=== PATIENT | male | born 1945 | race Caucasian/White ===

== ENCOUNTER 2020-07-10 12:34 | Emergency (ER) | payer MEDICARE ==
[2020-07-10] MEDS ORDERED: Albuterol Sulfate 2.5 mg/3 ml Neb ONE (13:26)
[2020-07-10] MEDS ORDERED: Magnesium 2 GM/50 ML BAG (IN WATER) ONE (13:31)
[2020-07-10] MEDS ORDERED: Furosemide 40 MG/4 ML VIAL ONE (13:31)
[2020-07-10 14:06] LABS: #Basophils 0.1 10x3/uL (0.0-0.2); #Eosinphils 0.7 10x3/uL (0.0-0.5); #Monocytes 0.9 10x3/uL (0.0-1.1); #Neutrophils 6.5 10x3/uL (1.5-8.4); %Basophils 1.3 % (0.0-2.0); %Lymphocytes 17.4 % (18.0-47.0); %Monocytes 8.6 % (0.0-10.0); %Neutrophils 65.2 % (40.0-75.0); Hemoglobin 14.2 g/dL (13.5-17.5); Mean Corpuscular Hemoglobin 28.1 pg (27.0-33.0); Mean Corpuscular Volume 85.1 fl (81.2-95.1); Mean Platelet Volume 9.5 fl (7.4-10.4); Platelet Count 285 10x3/uL (150-450); RBC Distribution Width 13.8 % (11.5-14.5); Red Blood Cell (RBC) Count 5.05 10x6/uL (4.32-5.72); White Blood Cell (WBC) Count 9.9 10x3/uL (3.5-10.5)
[2020-07-10 14:15] LABS: PTT 23.1 sec (22.0-33.0); Prothrombin Time 11.4 sec (9.5-12.1)
[2020-07-10 14:18] LABS: ALT (SGPT) 27 U/L (8-55); AST (SGOT) 25 U/L (5-34); Albumin 4.1 g/dL (3.4-4.8); Alkaline Phosphatase 93 U/L (40-110); Anion Gap 13 mmol/L (10-20); BUN (Urea Nitrogen) 21 mg/dL (8.4-25.7); Bilirubin, Total 0.5 mg/dL (0.2-1.2); Calc. Creatinine Clearance 0 mL/min (70-130); Calcium 9.4 mg/dL (7.8-10.44); Carbon Dioxide 29 mmol/L (23-31); Chloride 100 mmol/L (98-107); Globulin 3.2 g/dL (2.4-3.5); Glucose 150 mg/dL (83-110); Magnesium 1.9 mg/dL (1.6-2.6); Potassium 4.1 mmol/L (3.5-5.1); Protein, Total 7.3 g/dL (5.8-8.1); Sodium 138 mmol/L (136-145)
[2020-07-10 15:12] LABS: Bilirubin Neg (Negative); Blood, Urine 250 (Negative); Clarity Slightly Cloudy (Clear); Glucose, Urine (Dipstick) 250 mg/dL (Negative); Ketone, Urine Negative (Negative); Leukocyte Negative (Negative); Nitrite Negative (Negative); Protein, Urine (Dipstick) Negative (Neg-Trace); Urobilinogen Normal mg/dL (Less than 2); pH, Urine 6.5 (5.0-9.0)
[2020-07-10 15:43] LABS: RBC/HPF Greater than 50 HPF (0-3); Squamous Epithelial 0-3 HPF (0-3); WBC/HPF 0-3 HPF (0-3)
[2020-07-10 15:44] LABS: Bacteria/HPF Rare-Few HPF (None Seen)
== END 2020-07-10 15:44 | disposition home or self-care (01) ==
LOC: CSHERS 12:34
DX: J44.1 Chronic obstructive pulmonary disease with (acute) exacerbation (principal); J18.9 Pneumonia, unspecified organism; E78.5 Hyperlipidemia, unspecified; I10 Essential (primary) hypertension; G62.9 Polyneuropathy, unspecified; G30.9 Alzheimer's disease, unspecified; F02.80 Dementia in other diseases classified elsewhere, unspecified severity, without behavioral disturbance, psychotic disturbance, mood disturbance, and anxiety; Z87.891 Personal history of nicotine dependence; Z79.899 Other long term (current) drug therapy
CPT/HCPCS: 36415; 71045; 71275; 80053; 81003; 81015; 83735; 83880; 84484; 85025; 85610; 85730; 93005; 94760; 96365; 96375; J1940; J3475; J7611; J7620

== ENCOUNTER 2020-10-17 13:44 | Observation (INO) | payer MEDICARE ==
[2020-10-17] MEDS ORDERED: Aspirin 325 MG TAB ONE (14:20)
[2020-10-17 14:31] LABS: #Basophils 0.1 10x3/uL (0.0-0.2); #Eosinphils 0.5 10x3/uL (0.0-0.5); #Monocytes 0.7 10x3/uL (0.0-1.1); #Neutrophils 7.5 10x3/uL (1.5-8.4); %Eosinophils 5.2 % (0.0-6.0); %Lymphocytes 13.4 % (18.0-47.0); %Monocytes 6.6 % (0.0-10.0); %Neutrophils 73.3 % (40.0-75.0); Hemoglobin 13.4 g/dL (13.5-17.5); Mean Corpuscular HGB CONC 32.8 g/dL (32.0-36.0); Mean Corpuscular Hemoglobin 28.8 pg (27.0-33.0); Mean Corpuscular Volume 87.8 fl (81.2-95.1); Mean Platelet Volume 9.4 fl (7.4-10.4); Platelet Count 245 10x3/uL (150-450); Red Blood Cell (RBC) Count 4.66 10x6/uL (4.32-5.72); White Blood Cell (WBC) Count 10.3 10x3/uL (3.5-10.5)
[2020-10-17 14:44] LABS: ALT (SGPT) 24 U/L (8-55); AST (SGOT) 21 U/L (5-34); Alkaline Phosphatase 99 U/L (40-110); Anion Gap 13 mmol/L (10-20); BUN (Urea Nitrogen) 24 mg/dL (8.4-25.7); Bilirubin, Total 0.7 mg/dL (0.2-1.2); Calc. Creatinine Clearance 0 mL/min (70-130); Calcium 9.6 mg/dL (7.8-10.44); Carbon Dioxide 26 mmol/L (23-31); Chloride 107 mmol/L (98-107); Globulin 2.8 g/dL (2.4-3.5); Glucose 115 mg/dL (83-110); Potassium 4.1 mmol/L (3.5-5.1); Protein, Total 6.8 g/dL (5.8-8.1); Sodium 142 mmol/L (136-145)
[2020-10-17] MEDS ORDERED: Albuterol Sulfate 2.5 mg/0.5 ml Neb ONE (14:56)
[2020-10-17 17:17] LABS: Magnesium 2.1 mg/dL (1.6-2.6)
[2020-10-17] MEDS ORDERED: ALBUTEROL SULFATE 90 MCG IH PRN (21:13)
[2020-10-17] MEDS ORDERED: Nitroglycerin 0.4 MG TAB (25 Tab Bottle) SL PRN (21:20)
[2020-10-17 22:22] LABS: Troponin I Less than 0.010 ng/mL (< 0.028)
[2020-10-17 22:31] LABS: SARS-CoV-2 NAA Rapid Test Not Detected (NotDetected)
[2020-10-18 00:46] VITALS: BMI 35.9
[2020-10-18 00:55] LABS: Troponin I Less than 0.010 ng/mL (< 0.028)
[2020-10-18] MEDS ORDERED: Furosemide 20 MG/2 ML VIAL SLOW IVP SCH ×2 (02:45→08:45)
[2020-10-18 04:10] LABS: #Basophils 0.1 10x3/uL (0.0-0.2); #Eosinphils 0.7 10x3/uL (0.0-0.5); #Monocytes 0.8 10x3/uL (0.0-1.1); #Neutrophils 8.2 10x3/uL (1.5-8.4); %Basophils 1.1 % (0.0-2.0); %Eosinophils 6.4 % (0.0-6.0); %Lymphocytes 12.7 % (18.0-47.0); %Monocytes 7.2 % (0.0-10.0); %Neutrophils 72.2 % (40.0-75.0); Hemoglobin 13.4 g/dL (13.5-17.5); Mean Corpuscular HGB CONC 32.3 g/dL (32.0-36.0); Mean Corpuscular Hemoglobin 28.5 pg (27.0-33.0); Mean Corpuscular Volume 88.1 fl (81.2-95.1); Mean Platelet Volume 9.9 fl (7.4-10.4); Platelet Count 255 10x3/uL (150-450); RBC Distribution Width 15.1 % (11.5-14.5); Red Blood Cell (RBC) Count 4.71 10x6/uL (4.32-5.72); White Blood Cell (WBC) Count 11.4 10x3/uL (3.5-10.5)
[2020-10-18 04:19] LABS: ALT (SGPT) 22 U/L (8-55); AST (SGOT) 19 U/L (5-34); Albumin 3.8 g/dL (3.4-4.8); Alkaline Phosphatase 101 U/L (40-110); Anion Gap 12 mmol/L (10-20); BUN (Urea Nitrogen) 20 mg/dL (8.4-25.7); Bilirubin, Total 0.5 mg/dL (0.2-1.2); Calc. Creatinine Clearance 91 mL/min (70-130); Calcium 9.4 mg/dL (7.8-10.44); Carbon Dioxide 27 mmol/L (23-31); Cardiac Risk 4.4 (Less than 4.5); Chloride 106 mmol/L (98-107); Cholesterol 148 mg/dl (< 200 Desired); Globulin 3.2 g/dL (2.4-3.5); Glucose 141 mg/dL (83-110); HDL Cholesterol 34 mg/dL (>60 Neg Risk); LDL Cholesterol, Calculated 90 mg/dL; Magnesium 2.1 mg/dL (1.6-2.6); Potassium 4.1 mmol/L (3.5-5.1); Sodium 141 mmol/L (136-145); Triglycerides 122 mg/dL (Less than 150)
[2020-10-18] MEDS ORDERED: Levothyroxine Sodium 75 MCG TAB PO SCH (06:00)
[2020-10-18] MEDS ORDERED: Furosemide 40 MG/4 ML VIAL ONE (08:37)
[2020-10-18] MEDS ORDERED: Enoxaparin Sodium 40 MG/0.4 ML SYRINGE SC SCH (09:00)
[2020-10-18] MEDS ORDERED: Pregabalin 75 MG CAP PO SCH (09:00)
[2020-10-18] MEDS ORDERED: Aspirin Chewable 81 MG TAB PO SCH (09:00)
[2020-10-18] MEDS ORDERED: Primidone 50 MG TAB PO SCH (09:00)
[2020-10-18] MEDS ORDERED: Lisinopril 10 MG TAB PO SCH (09:00)
[2020-10-18] MEDS ORDERED: Amiodarone 200 MG TAB PO SCH (09:00)
[2020-10-18] MEDS ORDERED: Ascorbic Acid 500 mg Chewable Tablet PO SCH (09:00)
[2020-10-18] MEDS ORDERED: FLUoxetine HCl 20 MG CAP PO SCH (09:00)
[2020-10-18] MEDS ORDERED: Diltiazem HCl SR 90 mg Capsule PO SCH (09:00)
[2020-10-18 11:27] LABS: Hemoglobin A1c 7.4 % (4.0-6.0)
[2020-10-18 11:42] VITALS: BP 103/66; TEMP 97.9
[2020-10-18] MEDS ORDERED: Atorvastatin Calcium 20 MG TAB PO SCH (21:00)
[2020-10-18] MEDS ORDERED: Tamsulosin HCl 0.4 MG CAP PO SCH (21:00)
[2020-10-18] MEDS ORDERED: rOPINIRole HCl 1 MG TAB PO SCH (21:00)
[2020-10-18] MEDS ORDERED: Prazosin HCl 1 MG CAP PO SCH (21:00)
[2020-10-18] MEDS ORDERED: Mirtazapine 15 MG TAB PO SCH (21:00)
[2020-10-18] MEDS ORDERED: SODIUM FLUORIDE DT SCH (21:00)
== END 2020-10-18 15:26 | disposition home or self-care (01) ==
LOC: CSHERS 13:44 → CSHTELE 10-18 00:31
PROVIDERS: ADMIT Internal Medicine; ATTEND Physician Assistant Medical
DX: R07.9 Chest pain, unspecified (principal); J44.9 Chronic obstructive pulmonary disease, unspecified; I48.0 Paroxysmal atrial fibrillation; E03.9 Hypothyroidism, unspecified; E11.9 Type 2 diabetes mellitus without complications; I10 Essential (primary) hypertension; E78.5 Hyperlipidemia, unspecified; Z79.899 Other long term (current) drug therapy; Z79.82 Long term (current) use of aspirin; Z95.1 Presence of aortocoronary bypass graft; Z20.822 Contact with and (suspected) exposure to COVID-19
CPT/HCPCS: 0439T; 71045; 80053; 80061; 83036; 83605; 83735 ×2; 84484 ×3; 85025; 93005; 93306; 96372; 96374; 96376; G0378 ×2; U0002; 36415; 84443; J1650; J1940; J7611; J7620

== ENCOUNTER 2021-03-21 08:09 | Emergency (ER) | payer MEDICARE ==
[2021-03-21 08:49] LABS: #Basophils 0.1 10x3/uL (0.0-0.2); #Eosinphils 0.4 10x3/uL (0.0-0.5); #Monocytes 0.7 10x3/uL (0.0-1.1); #Neutrophils 6.9 10x3/uL (1.5-8.4); %Basophils 1.3 % (0.0-2.0); %Eosinophils 4.1 % (0.0-6.0); %Lymphocytes 15.8 % (18.0-47.0); %Monocytes 7.1 % (0.0-10.0); %Neutrophils 71.2 % (40.0-75.0); Hemoglobin 13.9 g/dL (13.5-17.5); Mean Corpuscular HGB CONC 32.4 g/dL (32.0-36.0); Mean Corpuscular Hemoglobin 28.8 pg (27.0-33.0); Mean Platelet Volume 9.2 fl (7.4-10.4); Platelet Count 258 10x3/uL (150-450); RBC Distribution Width 14.6 % (11.5-14.5); Red Blood Cell (RBC) Count 4.82 10x6/uL (4.32-5.72); White Blood Cell (WBC) Count 9.6 10x3/uL (3.5-10.5)
[2021-03-21 09:17] LABS: ALT (SGPT) 31 U/L (8-55); AST (SGOT) 25 U/L (5-34); Albumin 3.9 g/dL (3.4-4.8); Alkaline Phosphatase 95 U/L (40-110); Anion Gap 12 mmol/L (10-20); BUN (Urea Nitrogen) 18 mg/dL (8.4-25.7); Bilirubin, Total 0.8 mg/dL (0.2-1.2); Calc. Creatinine Clearance 0 mL/min (70-130); Calcium 8.8 mg/dL (7.8-10.44); Carbon Dioxide 27 mmol/L (23-31); Chloride 106 mmol/L (98-107); Globulin 2.7 g/dL (2.4-3.5); Glucose 129 mg/dL (83-110); Potassium 4.2 mmol/L (3.5-5.1); Protein, Total 6.6 g/dL (5.8-8.1); Sodium 141 mmol/L (136-145)
[2021-03-21 12:22] LABS: Troponin I Less than 0.010 ng/mL (< 0.028)
== END 2021-03-21 13:58 | disposition home or self-care (01) ==
LOC: CSHERS 08:09
DX: R07.89 Other chest pain (principal); J44.9 Chronic obstructive pulmonary disease, unspecified; E78.5 Hyperlipidemia, unspecified; I10 Essential (primary) hypertension; Z87.891 Personal history of nicotine dependence
CPT/HCPCS: 71045; 80053; 84484; 85025; 93005

== ENCOUNTER 2023-04-13 15:52 | Inpatient (IN) | payer MEDICARE ==
[~2023-04-13 15:52] MED LIST: Iopamidol 300 61% 100 ML VIAL FS ONE
[2023-04-13 16:42] LABS: #Basophils 0.1 10x3/uL (0.0-0.2); #Eosinphils 0.2 10x3/uL (0.0-0.5); #Monocytes 0.4 10x3/uL (0.0-1.1); %Basophils 0.8 % (0.0-2.0); %Eosinophils 1.6 % (0.0-6.0); %Lymphocytes 6.5 % (18.0-47.0); %Monocytes 3.1 % (0.0-10.0); %Neutrophils 87.4 % (40.0-75.0); Hematocrit 48.6 % (38.8-50.0); Hemoglobin 16.4 g/dL (13.5-17.5); Mean Corpuscular HGB CONC 33.7 g/dL (32.0-36.0); Mean Corpuscular Hemoglobin 29.6 pg (27.0-33.0); Mean Corpuscular Volume 87.7 fl (81.2-95.1); Mean Platelet Volume 9.8 fl (7.4-10.4); Platelet Count 305 10x3/uL (150-450); RBC Distribution Width 13.4 % (11.5-14.5); Red Blood Cell (RBC) Count 5.54 10x6/uL (4.32-5.72); White Blood Cell (WBC) Count 12.6 10x3/uL (3.5-10.5)
[2023-04-13 16:49] LABS: ALT (SGPT) 47 U/L (8-55); AST (SGOT) 30 U/L (5-34); Albumin 3.9 g/dL (3.4-4.8); Alkaline Phosphatase 123 U/L (40-110); Anion Gap 13 mmol/L (10-20); BUN (Urea Nitrogen) 23 mg/dL (8.4-25.7); Bilirubin, Total 0.5 mg/dL (0.2-1.2); Calc. Creatinine Clearance 0 mL/min (70-130); Carbon Dioxide 28 mmol/L (23-31); Chloride 103 mmol/L (98-107); Estimated GFR 90; Globulin 2.9 g/dL (2.4-3.5); Glucose 127 mg/dL (83-110); Magnesium 1.9 mg/dL (1.6-2.6); Potassium 4.1 mmol/L (3.5-5.1); Protein, Total 6.8 g/dL (5.8-8.1); Sodium 140 mmol/L (136-145)
[2023-04-13 16:56] LABS: Troponin I Less than 0.010 ng/mL (< 0.028)
[2023-04-13 17:31] LABS: SARS-CoV-2 NAA Rapid Test Not Detected (NotDetected)
[2023-04-13] MEDS ORDERED: Ipratropium/Albuterol 3 ML NEB NEB PRN (21:36)
[2023-04-13] MEDS ORDERED: Ondansetron PF 4 MG/2 ML Vial IVP PRN (21:39)
[2023-04-13] MEDS ORDERED: Ondansetron ODT 4 MG TAB PO PRN (21:39)
[2023-04-13] MEDS ORDERED: Acetaminophen 650 MG Suppository PR PRN (21:39)
[2023-04-13] MEDS ORDERED: Dextrose 5% in Water 1,000 ML IV PRN (22:18)
[2023-04-13] MEDS ORDERED: Dextrose 50% Abboject 50 ML SYRINGE SLOW IVP PRN (22:18)
[2023-04-13] MEDS ORDERED: Glucagon 1 MG/ML KIT IM PRN (22:18)
[2023-04-13] MEDS ORDERED: HumaLOG 300 UNITS/3 ML VIAL SC PRN ×2 (22:18)
[2023-04-13] MEDS ORDERED: Ipratropium/Albuterol 3 ML NEB ONE (22:21)
[2023-04-13] MEDS: Ipratropium/Albuterol 3 ML NEB NEB SCH (22:26)
[2023-04-13] MEDS ORDERED: Pantoprazole 40 MG VIAL IVP SCH (23:00)
[2023-04-14] MEDS ORDERED: Ipratropium/Albuterol 3 ML NEB ONE ×3 (02:07→14:19)
[2023-04-14 04:12] LABS: #Basophils 0.1 10x3/uL (0.0-0.2); #Eosinphils 0.4 10x3/uL (0.0-0.5); #Neutrophils 8.6 10x3/uL (1.5-8.4); %Eosinophils 2.9 % (0.0-6.0); %Lymphocytes 17.8 % (18.0-47.0); %Monocytes 7.9 % (0.0-10.0); Hematocrit 45.7 % (38.8-50.0); Hemoglobin 15.1 g/dL (13.5-17.5); Mean Corpuscular Hemoglobin 28.8 pg (27.0-33.0); Mean Platelet Volume 9.7 fl (7.4-10.4); Platelet Count 309 10x3/uL (150-450); RBC Distribution Width 13.3 % (11.5-14.5); Red Blood Cell (RBC) Count 5.25 10x6/uL (4.32-5.72); White Blood Cell (WBC) Count 12.2 10x3/uL (3.5-10.5)
[2023-04-14 04:25] LABS: Anion Gap 14 mmol/L (10-20); BUN (Urea Nitrogen) 19 mg/dL (8.4-25.7); Calc. Creatinine Clearance 0 mL/min (70-130); Calcium 8.7 mg/dL (7.8-10.44); Carbon Dioxide 29 mmol/L (23-31); Chloride 103 mmol/L (98-107); Estimated GFR 93; Glucose 63 mg/dL (83-110); Potassium 3.8 mmol/L (3.5-5.1); Sodium 142 mmol/L (136-145)
[2023-04-14] MEDS ORDERED: Pantoprazole 40 MG VIAL ONE (06:04)
[2023-04-14] MEDS: Pantoprazole 40 MG VIAL IVP SCH ×2 (06:10→20:26)
[2023-04-14] MEDS ORDERED: predniSONE 20 MG TAB PO SCH (09:15)
[2023-04-14] MEDS ORDERED: methylPREDNISolone Sod Succ 40 MG VIAL IVP SCH (12:00)
[2023-04-14] MEDS ORDERED: Metoprolol Tartrate 5 MG (5 mL) VIAL ONE (13:33)
[2023-04-14 17:51] VITALS: BMI 28.9
[2023-04-14] MEDS: Acetaminophen 325 MG TAB PO PRN (20:26)
[2023-04-15] MEDS: Levothyroxine Sodium 75 MCG TAB PO SCH (07:30)
[2023-04-15] MEDS ORDERED: predniSONE 20 MG TAB PO SCH (08:00)
[2023-04-15] MEDS ORDERED: Non-Formulary Medication 1 EACH (Tiotropium [Spiriva Handihaler] 18 MCG Box) INH SCH (09:00)
[2023-04-15] MEDS ORDERED: Iopamidol 300 61% 100 ML VIAL FS ONE (10:11)
[2023-04-15] MEDS ORDERED: KETAMINE 100 MG/ML (5ML VIAL) ONE (10:46)
[2023-04-15] MEDS ORDERED: Glycopyrrolate 0.2 MG/ML 5 ML SYRINGE ONE (10:47)
[2023-04-15] MEDS ORDERED: PROPOFOL 40 ML ONE (10:47)
[2023-04-15] MEDS ORDERED: Midazolam HCl 2 mg/2 ml Vial ONE (10:47)
[2023-04-15] MEDS: predniSONE 10 MG TAB PO SCH (10:54)
[2023-04-15] MEDS: Ipratropium/Albuterol 3 ML NEB NEB SCH (12:56)
[2023-04-15 17:18] VITALS: BP 149/76; TEMP 99.3
[2023-04-15] MEDS: Mometasone/Formoterol 200/5 60 PUFF INH SCH (18:50)
== END 2023-04-15 19:10 | disposition home or self-care (01) | DRG 392 ==
LOC: CSHERS 15:52 → CSHERHOLD 21:22 → CSHTELE 04-14 17:07 → OBSVTOIN 04-15 12:16
PROVIDERS: ADMIT Student in an Organized Health Care Education/Training Program; ATTEND Family Medicine
PROC: 5A0935A Assistance with Respiratory Ventilation, Less than 24 Consecutive Hours, High Flow/Velocity Cannula (ICD-10-PCS; 2023-04-14)
PROC: 0DB38ZX Excision of Lower Esophagus, Via Natural or Artificial Opening Endoscopic, Diagnostic (ICD-10-PCS; principal; 2023-04-15)
DX: K22.89 Other specified disease of esophagus (principal); K22.2 Esophageal obstruction; J44.9 Chronic obstructive pulmonary disease, unspecified; I25.10 Atherosclerotic heart disease of native coronary artery without angina pectoris; Z95.1 Presence of aortocoronary bypass graft; I10 Essential (primary) hypertension; E78.5 Hyperlipidemia, unspecified; E11.42 Type 2 diabetes mellitus with diabetic polyneuropathy; Z88.0 Allergy status to penicillin; Z79.82 Long term (current) use of aspirin; Z79.899 Other long term (current) drug therapy; Z79.4 Long term (current) use of insulin; Z88.8 Allergy status to other drugs, medicaments and biological substances; F32.A Depression, unspecified; Z87.891 Personal history of nicotine dependence; K44.9 Diaphragmatic hernia without obstruction or gangrene; Z11.52 Encounter for screening for COVID-19
CPT/HCPCS: 36415; 36416; 71045; 71260; 74177; 74220; 80048; 80053; 83735; 83880; 84484; 85025; 88305; 93005; 93010; 94640; 94760; 94762; 96374; 96375; 96376; C9113; G0378; J2250; J2704; J7620; Q9967

== ENCOUNTER 2023-05-15 00:09 | Inpatient (IN) | payer MEDICARE ==
[2023-05-15 00:50] LABS: Hematocrit 48.5 % (38.8-50.0); Hemoglobin 15.3 g/dL (13.5-17.5); Mean Corpuscular HGB CONC 31.5 g/dL (32.0-36.0); Mean Corpuscular Hemoglobin 28.6 pg (27.0-33.0); Mean Corpuscular Volume 90.7 fl (81.2-95.1); Mean Platelet Volume 10.7 fl (7.4-10.4); Platelet Count 168 10x3/uL (150-450); RBC Distribution Width 14.5 % (11.5-14.5); Red Blood Cell (RBC) Count 5.35 10x6/uL (4.32-5.72)
[2023-05-15] MEDS ORDERED: Cefepime 2 GM VIAL ONE (00:52)
[2023-05-15 00:55] LABS: MDiff Complete? YES
[2023-05-15 00:59] LABS: Bilirubin 1+ (Negative); Blood, Urine 50 (Negative); Clarity Slightly Cloudy (Clear); Glucose, Urine (Dipstick) 250 mg/dL (Negative); Ketone, Urine 5 mg/dL (Negative); Leukocyte 25 (Negative); Nitrite Negative (Negative); Protein, Urine (Dipstick) 100 mg/dl (Neg-Trace)
[2023-05-15 01:01] LABS: ALT (SGPT) 333 U/L (8-55); AST (SGOT) 438 U/L (5-34); Albumin 2.9 g/dL (3.4-4.8); Alkaline Phosphatase 286 U/L (40-110); Anion Gap 28 mmol/L (10-20); BUN (Urea Nitrogen) 45 mg/dL (8.4-25.7); Bilirubin, Total 1.2 mg/dL (0.2-1.2); Calc. Creatinine Clearance 0 mL/min (70-130); Calcium 7.6 mg/dL (7.8-10.44); Carbon Dioxide 14 mmol/L (23-31); Chloride 104 mmol/L (98-107); Estimated GFR 32; Globulin 2.5 g/dL (2.4-3.5); Glucose 98 mg/dL (83-110); Lipase 29 U/L (8-78); Magnesium 2.7 mg/dL (1.6-2.6); Protein, Total 5.4 g/dL (5.8-8.1); Sodium 140 mmol/L (136-145)
[2023-05-15 01:07] LABS: Critical Call Chem-Lactate NUR.AEB@0107
[2023-05-15] MEDS ORDERED: Calcium Gluc 4.6 MEQ/10 ML (100 MG/ML) ONE (01:13)
[2023-05-15 01:17] LABS: Platelet Adequacy Comment Appears Adequate; RBC Morph Comment Within Normal Limits
[2023-05-15 01:27] LABS: ALV-art Gradient 341.875 mmHg (0-20); Analyzer IN Cardio CS ER; Base Excess (BEa) -12.9 mEq/L (-2.0 to +3.0); CO2 Tension 47.3 mmHg (35.0-45.0); Calcium, Ionized (arterial) 1.01 mmol/L (1.12-1.30); Hematocrit-ABG 46 % (42.0-52.0); Hemoglobin (Hb) 15.8 g/dL (14.0-18.0); O2 Tension (PaO2), arterial 26.8 mmHg (> 70.0); Potassium - ABG Lab 5.35 mmol/L (3.70-5.30); Puncture Site RBA; pH, Arterial 7.146 (7.35-7.45)
[2023-05-15 01:28] LABS: Influenza A by NAA Not Detected (NotDetected); Influenza B by NAA Not Detected (NotDetected); SARS-CoV-2 NAA Rapid Test Not Detected (NotDetected)
[2023-05-15 01:29] LABS: CAUTI Indications for Culture Alt mental st,lethar; Squamous Epithelial 0-3 HPF (0-3)
[2023-05-15] MEDS ORDERED: Sodium Bicarb 50 MEQ/50 ML Abboject 8.4% SYRINGE ONE (01:29)
[2023-05-15 01:30] LABS: Bacteria/HPF 2+ HPF (None Seen)
[2023-05-15 01:31] LABS: Urine Culture Reflex No No
[2023-05-15 01:32] LABS: Troponin I 0.359 ng/mL (< 0.028)
[2023-05-15 01:35] LABS: Band 12 % (5-11); Lymphocytes 7 % (21-51); Monocytes 6 % (0-10); Neutrophil 75 % (42-75); Nucleated RBC (Manual Ct) 1 % (0)
[2023-05-15] MEDS ORDERED: Insulin Regular 300 UNITS/3 ML VIAL ONE (02:06)
[2023-05-15] MEDS ORDERED: Pantoprazole 40 MG VIAL ONE (02:34)
[2023-05-15] MEDS ORDERED: Acetaminophen 650 MG Suppository PR PRN (03:02)
[2023-05-15] MEDS ORDERED: Acetaminophen 325 MG TAB PO PRN (03:02)
[2023-05-15] MEDS ORDERED: Dexamethasone 10 MG/ML VIAL ONE (03:05)
[2023-05-15] MEDS ORDERED: Melatonin 3 MG TAB PO PRN (03:07)
[2023-05-15] MEDS ORDERED: HumaLOG 300 UNITS/3 ML VIAL SC PRN (03:30)
[2023-05-15] MEDS ORDERED: Dextrose 50% Abboject 50 ML SYRINGE SLOW IVP PRN (03:30)
[2023-05-15] MEDS ORDERED: Glucagon 1 MG/ML KIT IM PRN (03:30)
[2023-05-15] MEDS ORDERED: Dextrose 5% in Water 1,000 ML IV PRN (03:30)
[2023-05-15] MEDS ORDERED: Insulin Regular 300 UNITS/3 ML VIAL SC PRN (03:30)
[2023-05-15] MEDS: methylPREDNISolone Sod Succ/PF 125 MG/2 ML VIAL IVP SCH ×2 (04:30→08:20)
[2023-05-15 04:44] LABS: D-Dimer Test Greater than 35.20 mcg/mL (0.19-0.50); Fibrinogen Less than 50 mg/dL (220-504)
[2023-05-15] MEDS: Insulin Regular 300 UNITS/3 ML VIAL IVP SCH (05:14)
[2023-05-15] MEDS: Dextrose 50% Abboject 50 ML SYRINGE SLOW IVP SCH (05:14)
[2023-05-15] MEDS: VANCOMYCIN 2 GRAM/400 ML BAG 2 GM in Premix 1 BAG IVPB ONE (05:14)
[2023-05-15 05:16] LABS: ALT (SGPT) 949 U/L (8-55); AST (SGOT) 1229 U/L (5-34); Albumin 2.6 g/dL (3.4-4.8); Alkaline Phosphatase 269 U/L (40-110); Anion Gap 22 mmol/L (10-20); BUN (Urea Nitrogen) 44 mg/dL (8.4-25.7); Bilirubin, Direct 0.8 mg/dL (0.1-0.3); Bilirubin, Total 1.2 mg/dL (0.2-1.2); Calc. Creatinine Clearance 0 mL/min (70-130); Calcium 7.1 mg/dL (7.8-10.44); Carbon Dioxide 15 mmol/L (23-31); Chloride 106 mmol/L (98-107); Estimated GFR 39; Glucose 152 mg/dL (83-110); Potassium 4.4 mmol/L (3.5-5.1); Protein, Total 4.9 g/dL (5.8-8.1); Sodium 139 mmol/L (136-145)
[2023-05-15 05:22] LABS: Hematocrit 44.9 % (38.8-50.0); Hemoglobin 14.8 g/dL (13.5-17.5); Mean Corpuscular Hemoglobin 29.8 pg (27.0-33.0); Mean Corpuscular Volume 90.5 fl (81.2-95.1); Mean Platelet Volume 11.2 fl (7.4-10.4); Platelet Count 130 10x3/uL (150-450); RBC Distribution Width 14.6 % (11.5-14.5); Red Blood Cell (RBC) Count 4.96 10x6/uL (4.32-5.72); White Blood Cell (WBC) Count 33.6 10x3/uL (3.5-10.5)
[2023-05-15 05:32] VITALS: BMI 29.7
[2023-05-15] MEDS: Ipratropium/Albuterol 3 ML NEB NEB SCH (05:38)
[2023-05-15] MEDS: Ipratropium/Albuterol 3 ML NEB NEB PRN (05:38)
[2023-05-15] MEDS: Levothyroxine Sodium 75 MCG TAB PO SCH (05:43)
[2023-05-15 05:57] LABS: MDiff Complete? YES
[2023-05-15 05:58] LABS: Platelet Adequacy Comment Appears Decreased
[2023-05-15 06:00] LABS: Band 14 % (5-11); Eosinophils 1 % (0-10); Lymphocytes 5 % (21-51); Monocytes 6 % (0-10); Neutrophil 74 % (42-75)
[2023-05-15 06:09] LABS: RBC Morph Comment Within Normal Limits
[2023-05-15 06:31] LABS: Prothrombin Time 132.5 sec (12.0-14.7)
[2023-05-15 06:42] LABS: INR-International Normal Ratio 18.7; PTT Greater than 250.0 sec (22.9-36.1)
[2023-05-15] MEDS: Aspirin Chewable 81 MG TAB PO SCH (08:16)
[2023-05-15] MEDS: Empagliflozin 25 MG TAB PO SCH (08:21)
[2023-05-15] MEDS: Tamsulosin HCl 0.4 MG CAP PO SCH (08:22)
[2023-05-15] MEDS: Pregabalin 50 MG CAP PO SCH (08:22)
[2023-05-15] MEDS: FLUoxetine HCl 20 MG CAP PO SCH (08:22)
[2023-05-15] MEDS: Ezetimibe 10 MG TAB PO SCH (08:24)
[2023-05-15] MEDS: Primidone 50 MG TAB PO SCH (08:24)
[2023-05-15] MEDS: rOPINIRole HCl 1 MG TAB PO SCH (08:26)
[2023-05-15 08:40] LABS: Troponin I 0.434 ng/mL (< 0.028)
[2023-05-15] MEDS ORDERED: Vancomycin 1 GM in Sodium Chloride 0.9% 250 ML 250 ML IVPB SCH ×2 (09:00→23:00)
[2023-05-15] MEDS ORDERED: Heparin 5,000 UNITS/ML VIAL SC SCH (09:00)
[2023-05-15] MEDS: Pantoprazole 80 MG, Admixture Fee 1 EACH in Sodium Chloride 0.9% 100 ML IVPB SCH (09:51)
[2023-05-15] MEDS: Sodium Chloride 0.9% 1,000 ML IV SCH (09:53)
[2023-05-15] MEDS: Meropenem 1 GM in Sodium Chloride 0.9% 100 ML IVPB SCH (09:54)
[2023-05-15] MEDS ORDERED: HUM PROTHROMBIN CPLX IV SCH ×2 (10:00)
[2023-05-15] MEDS ORDERED: ADMIXTURE FEE IV SCH ×2 (10:00)
[2023-05-15] MEDS ORDERED: [UNRECOGNIZED DRUG - OTHER] IV SCH (10:00)
[2023-05-15] MEDS ORDERED: [UNRECOGNIZED DRUG - OTHER] IV SCH (10:00)
[2023-05-15] MEDS: HUMAN PROTHROMBIN COMPLX IV SCH (10:05)
[2023-05-15] MEDS: ADMIXTURE FEE IV SCH (10:05)
[2023-05-15] MEDS: Mometasone 100 MCG/PUFF (1 INHALER) INH SCH (11:39)
[2023-05-15] MEDS ORDERED: Iopamidol 370 76% 100 ML VIAL ONE (12:37)
[2023-05-15] MEDS ORDERED: Cefepime 1 GM in Sodium Chloride 0.9% 100 ML IVPB SCH (13:00)
[2023-05-15 13:23] LABS: Anion Gap 20 mmol/L (10-20); BUN (Urea Nitrogen) 47 mg/dL (8.4-25.7); Calc. Creatinine Clearance 43 mL/min (70-130); Calcium 7.7 mg/dL (7.8-10.44); Carbon Dioxide 19 mmol/L (23-31); Chloride 108 mmol/L (98-107); Estimated GFR 42; Glucose 144 mg/dL (83-110); Potassium 4.5 mmol/L (3.5-5.1); Sodium 142 mmol/L (136-145)
[2023-05-15 13:31] LABS: Hematocrit 41.2 % (38.8-50.0); Hemoglobin 13.5 g/dL (13.5-17.5); Mean Corpuscular HGB CONC 32.8 g/dL (32.0-36.0); Mean Corpuscular Hemoglobin 28.9 pg (27.0-33.0); Mean Corpuscular Volume 88.2 fl (81.2-95.1); Mean Platelet Volume 10.7 fl (7.4-10.4); Platelet Count 67 10x3/uL (150-450); RBC Distribution Width 14.6 % (11.5-14.5); Red Blood Cell (RBC) Count 4.67 10x6/uL (4.32-5.72); White Blood Cell (WBC) Count 21.4 10x3/uL (3.5-10.5)
[2023-05-15 13:38] LABS: INR-International Normal Ratio 1.7; PTT 32.7 sec (22.0-33.0); Prothrombin Time 17.6 sec (9.5-12.1)
[2023-05-15 13:49] LABS: D-Dimer Test Greater than 35.20 mcg/mL (0.19-0.50); Fibrinogen 71 mg/dL (220-504)
[2023-05-15 13:54] LABS: Critical Call Chem Troponin I ICU.RH1@1353; Troponin I 0.436 ng/mL (< 0.028)
[2023-05-15 14:28] LABS: Band 18 % (5-11); Lymphocytes 1 % (21-51); Metamyelocyte 1 % (0-0); Monocytes 4 % (0-10); Myelocyte 2 % (0-0)
[2023-05-15 14:31] LABS: Anisocytosis SLIGHT = 6-15 cells (100X) (0-5/hpf); Burr Cells SLIGHT = 2-5 cells (100X) (0-1/hpf); Microcytosis SLIGHT = 6-15 cells (100X) (0-5/hpf)
[2023-05-15 14:35] LABS: Platelet Clumps SLIGHT; Reflex for Review?? YES; Toxic Granulation SLIGHT
[2023-05-15 14:36] LABS: Platelet Adequacy Comment Appears Decreased
[2023-05-15] MEDS ORDERED: Meropenem 1 GM in Sodium Chloride 0.9% 100 ML IVPB SCH (18:00)
[2023-05-15] MEDS ORDERED: Atorvastatin Calcium 40 MG TAB PO SCH (21:00)
[2023-05-15] MEDS ORDERED: traZODone HCl 50 MG TAB PO SCH (21:00)
[2023-05-16 19:53] LABS: MDiff Complete? YES; Neutrophil 74 % (42-75)
== END 2023-05-15 13:15 | disposition short-term general hospital (02) | DRG 871 ==
LOC: SUATTDRO 00:09 → CSHERS 00:09 → CSHIMCU 03:01
PROVIDERS: ADMIT Family Medicine; ATTEND Internal Medicine
PROC: 30233K1 Transfusion of Nonautologous Frozen Plasma into Peripheral Vein, Percutaneous Approach (ICD-10-PCS; principal; 2023-05-15)
PROC: 4A033R1 Measurement of Arterial Saturation, Peripheral, Percutaneous Approach (ICD-10-PCS; 2023-05-15)
PROC: 3E03329 Introduction of Other Anti-infective into Peripheral Vein, Percutaneous Approach (ICD-10-PCS; 2023-05-15)
PROC: 06HY33Z Insertion of Infusion Device into Lower Vein, Percutaneous Approach (ICD-10-PCS; 2023-05-15)
DX: A41.9 Sepsis, unspecified organism (principal); D65 Disseminated intravascular coagulation [defibrination syndrome]; I21.A1 Myocardial infarction type 2; R65.21 Severe sepsis with septic shock; K72.00 Acute and subacute hepatic failure without coma; J96.21 Acute and chronic respiratory failure with hypoxia; C15.9 Malignant neoplasm of esophagus, unspecified; E87.20 Acidosis, unspecified; N39.0 Urinary tract infection, site not specified; N17.9 Acute kidney failure, unspecified; D68.9 Coagulation defect, unspecified; K62.5 Hemorrhage of anus and rectum; I25.10 Atherosclerotic heart disease of native coronary artery without angina pectoris; K59.00 Constipation, unspecified; F32.A Depression, unspecified; E78.5 Hyperlipidemia, unspecified; E11.40 Type 2 diabetes mellitus with diabetic neuropathy, unspecified; J43.9 Emphysema, unspecified; I11.0 Hypertensive heart disease with heart failure; E03.9 Hypothyroidism, unspecified; I50.810 Right heart failure, unspecified; Z88.0 Allergy status to penicillin; Z85.72 Personal history of non-Hodgkin lymphomas; Z79.899 Other long term (current) drug therapy; Z79.82 Long term (current) use of aspirin; Z79.51 Long term (current) use of inhaled steroids; Z99.81 Dependence on supplemental oxygen; Z79.84 Long term (current) use of oral hypoglycemic drugs; Z79.890 Hormone replacement therapy; Z98.890 Other specified postprocedural states; Z87.891 Personal history of nicotine dependence
CPT/HCPCS: 36416; 36430; 36600; 71045; 71275; 74177; 80053; 81001; 82805; 83605; 83690; 83735; 83880; 84484; 85025; 85060; 85379; 85384; 85610; 85730; 86850; 86900; 86901; 87040; 87077; 93005; 93306; 94640; 94664; 94760; 94762; C9113; J0612; J0692; J1100; J1644; J1815; J2185; J2930; J3370; J3490; J7050; J7168; J7620; J7999; P9059; Q9967